=== PATIENT | male | born 1955 | race African-American/Black ===

== ENCOUNTER 2017-07-11 09:50 | Emergency (ER) | payer MEDICAID ==
[~2017-07-11] VITALS: Ht 177.8 cm; Wt 85.0 kg
[2017-07-11 10:37] LABS: BASOPHILS % 0.7 % (0.0-2.0); EOSINOPHILS % 8.6 % (0.0-5.0); HEMATOCRIT. 32.9 % (42.0-52.0); LYMPHOCYTES % 21.3 % (20.0-50.0); MEAN CORPUSCULAR HEMOGLOBIN 28.7 pg (28.0-32.0); MEAN CORPUSCULAR VOLUME 85.7 fL (80.0-94.0); MEAN PLATELET VOLUME 8.1 fl (7.4-10.4); MONOCYTES % 7.2 % (2.0-8.0); NEUTROPHILS % 62.2 % (40.0-76.0); PLATELET 291 x1000/uL (130-400); RED BLOOD CELL COUNT 3.84 mill/uL (4.7-6.1); RED CELL DISTRIBUTION WIDTH 13.3 % (11.6-14.6)
[2017-07-11 10:41] LABS: CHLORIDE 103 mEq/L (98-107)
[2017-07-11 10:48] LABS: PROTHROMBIN TIME 10.6 sec (9.4-11.6)
[2017-07-11 11:54] LABS: CLARITY URINE CLEAR (CLEAR); COLOR URINE YELLOW (YELLOW); KETONES URINE NEGATIVE (NEGATIVE); LEUKOCYTE ESTERASE URINE 1+ (NEGATIVE); NITRITE URINE NEGATIVE (NEGATIVE); OCCULT BLOOD URINE NEGATIVE (NEGATIVE); PH URINE 5.5 (4.5-8.0); PROTEIN URINE NEGATIVE (NEGATIVE); SPECIFIC GRAVITY URINE 1.021 (1.005-1.030); UROBILINOGEN URINE 0.2 E.U./dL (0.2-1.0)
[2017-07-11 12:44] VITALS: BP 109/63
== END 2017-07-11 12:53 | disposition home or self-care (01) ==
LOC: ER 10:09
DX: N30.00 Acute cystitis without hematuria (principal); R55 Syncope and collapse; R53.1 Weakness; R42 Dizziness and giddiness; K50.90 Crohn's disease, unspecified, without complications
CPT/HCPCS: 36415; 70450; 80053; 81003; 85025; 85610; 93005; 99285; Z7610